=== PATIENT | female | born 1970 | race Caucasian/White ===

== ENCOUNTER 2020-02-18 08:24 | Emergency (ER) | payer OTHER ==
[~2020-02-18] VITALS: Ht 165.1 cm; Wt 61.2 kg
[~2020-02-18 08:24] MED LIST: ADDERALL XR 2020 MG PO; AMBIEN 5 MG TABL5 M1 PO; AMOXICILLIN500 M1 PO; DARVOCET A5001 EACH PO; IBUPROFEN 800800 M1 PO; MEDROLDOSEPACK PO; METHOTREXATE 22.5 M1 PO; NAPROXEN 500MG500 MG PO; NORCO 5-325 TA1 EACH PO; PERCOCET PO; PREDNISONE 10 M10 MG PO; PROZAC PO; PROZAC20 MG PO; VALACYCLOVIR500 MG PO; XANAX 0.5 MG0.5 MG PO; ZOFRAN ODT4 MG PO
[2020-02-18] MEDS ORDERED: MELOXICAM7.5 MG PO (08:34)
[2020-02-18] MEDS ORDERED: HUMIRA20 MG/0.4 SUBQ (08:35)
[2020-02-18] MEDS ORDERED: FLEXERIL PO ×2 (08:35→10:06)
[2020-02-18] MEDS ORDERED: HYDROCODON-ACE1 EAC7 PO (08:35)
[2020-02-18 10:15] VITALS: BP 130/86
== END 2020-02-18 10:15 | disposition home or self-care (01) ==
LOC: M.ERS 08:24
DX: S22.42XA Multiple fractures of ribs, left side, initial encounter for closed fracture (principal); M79.7 Fibromyalgia; M81.0 Age-related osteoporosis without current pathological fracture; Z79.899 Other long term (current) drug therapy; Z88.1 Allergy status to other antibiotic agents; F17.210 Nicotine dependence, cigarettes, uncomplicated; Z90.710 Acquired absence of both cervix and uterus; Z98.51 Tubal ligation status; W18.39XA Other fall on same level, initial encounter; Y93.89 Activity, other specified; Y92.89 Other specified places as the place of occurrence of the external cause; Y99.8 Other external cause status

== ENCOUNTER → 2020-10-12 | Outpatient (CLI) | payer OTHER ==
[~2020-10-12] MED LIST changes: +FLEXERIL PO; +HUMIRA20 MG/0.4 SUBQ; +HYDROCODON-ACE1 EAC7 PO; +MELOXICAM7.5 MG PO
== END ==
LOC: M.RAD 08:52
PROVIDERS: ATTEND Internal Medicine
DX: J15.8 Pneumonia due to other specified bacteria (principal); M32.9 Systemic lupus erythematosus, unspecified; M85.80 Other specified disorders of bone density and structure, unspecified site; T78.3XXS Angioneurotic edema, sequela